=== PATIENT | female | born 2000 | race Two or more races ===

== ENCOUNTER 2025-04-06 05:18 | Emergency (ER) | payer MEDICAID, OTHER ==
[~2025-04-06] VITALS: Ht 167.6 cm; Wt 68.0 kg
[2025-04-06 05:24] VITALS: BP 127/89; PULSE 101; RESP 18; TEMP 98.1; O2SAT 98
--- NOTE | 2025-04-06 06:45 | ED.PDOC ---
Musculoskeletal HPI Comments A 24 YEAR-OLD FEMALE PRESENTS TO THE ED VIA EMS WITH A CHIEF COMPLAINT OF LEFT FOOT PAIN OF X2 WEEKS AGO. PATIENT STATES THAT SHE HAS BEEN "WALKING ALOT", NOTES NO KNOWN ALLEVIATING FACTORS, BUT OTHERWISE DENIES ANY INJURY OR TRAUMA TO THE AREA. PATIENT HAS NO FURTHER COMPLAINTS AT THIS TIME AND OTHERWISE DENIES FU RTHER ASSOCIATED SYMPTOMS OF FEVER, CHILLS, N/V/D, OR INFECTION TO THE SITE. PATIENT IS ALERT, ORIENTED X 4, AND HAS STEADY GAIT. Chief Complaint: Lower Extremity Time Seen by MD: 06:30 Reviewed Notes: Nurses Notes, Manager Contract Notes, Medications, Allergies Allergies: Coded Allergies: NO KNOWN ALLERGIES (Unverified , 04/06/25) Information Source: Patient Mode of Arrival: EMS Location: Left Extremity Location: Foot Timing: Weeks (2) Prehospital treatment: None Severity: Moderate Bear Weight: Limited, No Pain: Moderate Hand Dominance: Right Symptoms: Swelling, Pain DVT Risk Factors: NONE Last Tetanus: UTD Associated signs and symptoms: Foot pain (LEFT) Past Medical History PAST MEDICAL HISTORY: Denies Surgical History: Denies all surgeries 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 History: No Pertinent 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 History Family History Family History: Reviewed,noncontributory to illness, No family hx of Cancer, No family hx of DM, No family hx of Heart tigist, No family hx of HTN, No family hx ofKidney tigist, No family hx of Liver tigist, No family hx of Lung tigist, No family hx of Stroke Social History Smoker: Other (VAPE) Alcohol: Denies ETOH Use Drugs: Denies Drug Use Lives In: Home Constitutional: denies: chills, diaphoresis, fatigue, fever, malaise, sweats, weakness, others EENTM: denies: blurred vision, double vision, ear bleeding, ear discharge, ear drainage, ear pain, ear ringing, eye pain, eye redness, hearing loss, mouth pain, mouth swelling, nasal discharge, nose bleeding, nose congestion, nose pain, photophobia, tearing, throat pain, throat swelling, voice changes, others Respiratory: denies: cough, hemoptysis, orthopnea, SOB at rest, shortness of breath, SOB with excertion, stridor, wheezing, others Cardiovascular: denies: chest pain, dizzy spells, diaphoresis, Dyspnea on exertion, edema, irregular heart beat, left arm pain, lightheadedness, palpitations, PND, syncope, others Gastrointestinal: denies: abdomen distended, abdominal pain, blood streaked bowels, constipated, diarrhea, dysphagia, difficulty swallowing, hematemesis, melena, nausea, poor appetite, poor fluid intake, rectal bleeding, rectal pain, vomiting, others Genitourinary: denies: abnormal vagina bleeding, burning, dyspareunia, dysuria, flank pain, frequency, hematuria, incontinence, pain, , vagina discharge, urgency, others Neurological: denies: dizziness, fainting, headache, left sided numbness, left sided weakness, numbness, paresthesia, pre-existing deficit, right sided numbnes s, right sided weakness, seizure, speech problems, tingling, tremors, weakness, others Musculoskeletal: reports: joint pain, joint swelling, others (LEFT FOOT PAIN ); denies: back pain, gout, muscle pain, muscle stiffness, neck pain Integumetry: denies: bruises, change in color, change in hair/nails, dryness, laceration, lesions, lumps, rash, wounds, others Allergic/Immunocompromised: denies: Difficulty Healing, Frequent Infections, Hives, Itching, others Hematologic/Lymphatic: denies: anemia, blood clots, easy bleeding, easy bruising, swollen glands, others Endocrine: denies: excessive hunger, excessive sweating, excessive thirst, excessive urination, flushing, intolerance to cold, intolerance to heat, unexplained weight gain, unexplained weight loss, others Psychiatric: denies: anxiety, bipolar disorder, depression, hopeless, panic disorder, schizophrenia, sleepless, suicidal, others All Other Systems: Reviewed and Negative Physical Exam General Appearance: No Apparent Distress, Normal HEENT: Normal ENT Inspection, PERRL/EOMI, Pharynx Normal, TMs Normal Neck: Full Range of Motion, Non-Tender, Normal, Normal Inspection Respiratory: Chest Non-Tender, Lungs Clear, No Accessory Muscle Use, No Respiratory Distress, Normal Breath Sounds Cardiovascular: No Edema, No JVD, No Murmur, No Gallop, Normal Peripheral Pulses, Regular Rate/Rhythm Breast Exam: Deferred Gastrointestinal: No Organomegaly, Non Tender, No Pulsatile Mass, Normal Bowel Sounds, Soft Genitalia: Deferred Pelvic: Deferred Rectal: Deferred Extremities: Decreased range of motion, No calf tenderness, Normal capillary refill, No pedal edema, Swelling (AND TENDERNESS ON LEFT DORSAL FOOT, NO BONY TENDERNESS AND DEFORMITY. ), Tender (AND MILD SWELLING ON LEFT DORSAL FOOT. ) Musculoskeletal : Apperance: Normal Neurologic: Alert, server software engineer II-XII nml as Tested, No Motor Deficits, Normal Affect, Normal Mood, No Sensory Deficits Cerebellar Function: Normal Reflexes: Normal Skin: Dry, Normal Color, Warm Peripheral Pulses: 2+ carotid (R), 2+ carotid (L), 2+ dorsalis pedis (R), 2+ dorsalis pedis (L) Lymphatic: No Adenopathy Was a procedure done? Was a procedure done?: No Differential Diagnosis EXT Differential Diagnosis: Fracture, Sprain, Contusion, Strain, Bursitis X-Ray, Labs, Meds, VS Vital Signs Date Time Temp Pulse Resp B/P (MAP) Pulse Ox O2 Delivery O2 Flow Rate FiO2 04/06/25 05:24 98.1 101 18 127/89 (102) 98 98.1 ORDERING PHYSICIAN: RICHARD BLUE PROCEDURE(s): LFOOT - L FOOT 3 VIEW XRAY REASON: PAIN AFTER WALKING ORDER NUMBER(s): [id number], ACCESSION NUMBER(s): [id number] CLINICAL INFORMATION: Left foot pain and swelling status after walking. TECHNIQUE: 3 views of the left foot were obtained. COMPARISON: None FINDINGS: No acute fracture or dislocation. No significant arthropathy. Sclerotic foci in the calcaneus and talus, likely bone islands. Adjacent soft tissues are unremarkable. IMPRESSION: 1. No evidence of acute bony abnormality. 2. Nonacute findings as described above. X-Ray, Labs, Meds, VS Comment EXTERNAL MEDICAL RECORDS: NONE INDEPENDENT HISTORIANS: NONE SOCIAL DETERMINANTS OF HEALTH: NONE LABS ORDERED: NONE REVIEWED AND INTERPRETED RESULTS: NONE IMAGING ORDERED: LEFT FOOT XRAY TREATMENTS ORDERED: NONE PATIENT'S CASE AND RESULTS HAVE BEEN DISCUSSED WITH THE ED ATTENDING PHYSICIAN AND THEY AGREE WITH MY PLAN OF CARE.RX: NAPROXEN 500MG I HAVE DISCUSSED IMAGING AND LAB RESULTS WITH THE PATIENT AND HAVE INSTRUCTED THE PATIENT TO FOLLOW UP WITH THEIR PCP IN 1-2 DAYS. THE PATIENT FULLY UNDERSTANDS THEIR RESULTS AND ARE AWARE THEY NEED TO FOLLOW UP WITH THEIR PCP FOR FURTHER EVALUATION IF THEIR SYMPTOMS PERSIST. Images Reviewed?: Images reviewed and evaluated by me Time of 1ST Reevaluation: 08:00 Reevaluation 1ST: Improved Patient Education/Counseling: Diagnosis, Treatment, Need For Follow Up Family Education/Counseling: Diagnosis, Treatment, No Family Present Medical Screening: No EMC Exist At This Time Departure 1 Departure Time of Disposition: 08:00 Impression: Primary Impression: Sprain of left foot Qualified Codes: S93.602A - Unspecified sprain of left foot, initial encounter Disposition: HOME / SELF CARE / HOMELESS Condition: Stable Additional Instructions: FOLLOW-UP WITH PCP IN 1 TO 2 DAYS. TAKE MEDICATIONS PRESCRIBED. RETURN TO ED FOR ANY NEW OR WORSENING SYMPTOMS. e-Prescriptions Naproxen (Naproxen) 500 Mg Tab 500 MG PO BID, #30 TAB Prov: RICHARD BLEU 04/06/25 Discharged With: Self Critical Care Note Critical Care Time?: No Stability Stability form required: No Heart Score Heart Score: Heart Score Response (Comments) Value History N/A 0 EKG N/A 0 Age N/A 0 Risk Factors N/A 0 Troponin N/A 0 Total 0 I personally scribed for RICHARD BLUE ([email or web address]) on 04/06/25 at 06:45. Electronically submitted by Марина Suarez ([email or web address]). I personally scribed for RICHARD BLUE ([email or web address]) on 04/06/25 at 06:46. Electronically submitted by Марина Suarez ([email or web address]). I personally scribed for RICHARD BLUE ([email or web address]) on 04/06/25 at 07:40. Electronically submitted by Марина Suarez ([email or web address]). RICHARD BLUE Apr 06, 2025 06:45
--- NOTE | 2025-04-06 07:24 | DVH ---
CLINICAL INFORMATION: Left foot pain and swelling status after walking. TECHNIQUE: 3 views of the left foot were obtained. COMPARISON: None FINDINGS: No acute fracture or dislocation. No significant arthropathy. Sclerotic foci in the calcane us and talus, likely bone islands. Adjacent soft tissues are unremarkable. IMPRESSION: 1. No evidence of acute bony abnormality. 2. Nonacute findings as described above.
[2025-04-06] MEDS ORDERED: NAPR-746 PO (07:49)
== END 2025-04-06 09:00 | disposition home or self-care (01) ==
LOC: ER 05:18 → EDBD 05:18 → ER 09:00
DX: S93.692A Other sprain of left foot, initial encounter (principal); F17.290 Nicotine dependence, other tobacco product, uncomplicated; X58.XXXA Exposure to other specified factors, initial encounter; Y93.01 Activity, walking, marching and hiking; Y92.89 Other specified places as the place of occurrence of the external cause; Y99.8 Other external cause status
CPT/HCPCS: 73630